=== PATIENT | female | born 1960 | race Caucasian/White ===

== ENCOUNTER 2017-08-11 01:11 | Inpatient (IN) | payer OTHER ==
[~2017-08-11] VITALS: Ht 165.1 cm; Wt 102.7 kg
[2017-08-11] VITALS (7 sets, daily range): BP systolic 130–171; BP diastolic 76–93
--- NOTE | ~2017-08-11 | HC ---
[facility] [place] [address] CONSULTATION Name: MARIO ALBERTO JAY Room #: 218-P [facility] IN M.R.#: [id number] Admission: 08/11/17 Attend Phys: Fred Kitchen MD Discharge: 08/12/17 Date of : 60 Report #: [id number] THIS REPORT FOR: //name// CC: Fred Gallardo DATE OF SERVICE: 08/11/2017 PULMONARY CONSULTATION PRIMARY CARE PHYSICIAN: Dr. Gallardo. REFERRAL PHYSICIAN: Dr. Hyde. REASON FOR REFERRAL: Dyspnea. HISTORY OF PRESENT ILLNESS: The patient is a 57-year-old white female who presents to the Emergency Room with increasing dyspnea. A Pulmonary consultation was requested. The patient has known asthma. She is followed longitudinally by Dr. Galarza at . She has been doing fairly until for the past few months. She has had trouble with exacerbation of asthma. She states that she was hospitalized at [facility] in May for pneumonia and exacerbation of asthma. She has been doing fairly well until about for the last 2-3 weeks. Now, she has noticed increasing dyspnea, cough along with chills. Otherwise, denies any chest pain, hemoptysis, nausea, vomiting, diarrhea. The patient has smoked in the past, but quit 4 years ago. She has smoked for many years. 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 PAST MEDICAL HISTORY: Notable for COPD/asthma overlap, hypothyroidism. ALLERGIES: PENICILLIN, WHICH CAUSES HIVES. HOME MEDICATIONS: Synthroid. She is not on any inhalers on a regular basis due to allergy to one of the inhaler medications. FAMILY HISTORY: Noncontributory. SOCIAL HISTORY: She has smoked, but quit more than 4 years ago. She denies any alcohol use. [facility] [address] [place] [address] CONSULTATION Name: MARIO ALBERTO JAY Room #: 218-P [facility] IN ..#: [id number] Admission: 08/11/17 Attend Phys: Fred Kitchen MD Discharge: 08/12/17 Date of : 60 Report #: [id number] REVIEW OF SYSTEMS: As mentioned above, otherwise 10-point system review negative. PHYSICAL EXAMINATION: GENERAL: She is awake, alert, in no apparent distress. VITAL SIGNS: Temperature is 98 degrees Fahrenheit, pulse is 90, respiratory rate is 18, blood pressure 138/80 mmHg, saturation 95%. HEENT: Normocephalic, atraumatic. NECK: Supple, without lymphadenopathy or thyromegaly. CHEST: Breath sounds are fair with mild expiratory wheezes. No rales. CARDIOVASCULAR: Normal S1, S2. There are no murmurs or gallop. There is no JVD. There is no carotid bruit. Pulses are 2+/4+ bilaterally. ABDOMEN: Soft, nontender, no organomegaly or masses felt. GENITOURINARY: Deferred. RECTAL: Deferred. EXTREMITIES: There is no edema, cyanosis or clubbing. LABORATORY DATA: Portable chest x-ray is notable for mild chronic interstitial infiltrates in the bases. Otherwise, no consolidation noted. Influenza A and B antigen is negative. EKG shows poor R-wave progression, otherwise no other acute ischemic changes. CT chest angiogram for pulmonary embolus showed no evidence of pulmonary emboli, mild patchy ground glass opacities, mild bilateral atelectasis, increased septal markings, mild bilateral hilar and superior mediastinal adenopathy. Electrolytes are normal. WBC is 7900, hemoglobin 13.7, platelets are normal, no evidence of bandemia. Arterial blood gas revealed pH 7.42, pCO2 of 30, pO2 of 54 on 15 liters of O2. IMPRESSION: 1. Profound hypoxia in this 57-year-old white female with history of chronic obstructive pulmonary disease/asthma. She has smoked most of her life until about 4 years ago. She was recently treated for pneumonia in May 2017. She now presents with worsening dyspnea. CT chest angiogram shows patchy ground-glass opacity, bibasilar atelectasis, increased prominence of septum. Mild mediastinal adenopathy is noted. Etiology due to exacerbation of underlying chronic obstructive pulmonary disease/asthma syndrome. Radiographic abnormality suggests atelectasis, possible interstitial process. Interstitial lung disease is felt to be less likely. With presence of mild mediastinal adenopathy, granulomatous disease is also considered. 2. Abnormal CT chest as mentioned above showing mild interstitial lung disease, ground-glass opacity, adenopathy. Etiology likely reactive, but will need followup chest CT. 3. Eosinophilia, will be consistent with underlying asthma. DISCUSSION: It is possible the patient's hypoxia is related to ongoing [address] [address] CONSULTATION Name: MARIO ALBERTO JAY Room #: 218-P [facility] IN M.R.#: [id number] Admission: 08/11/17 Attend Phys: Fred Kitchen MD Discharge: 08/12/17 Date of : 60 Report #: [id number] exacerbation of asthma along with mucus plugging. Cannot rule out other inflammatory granulomatous process. Pneumonia is possible, though less likely. Would recommend broad-spectrum antibiotics, corticosteroids and bronchodilators. Would try mucolytics given probable mucus plugging. Deep venous thrombosis and gastrointestinal prophylaxis recommended. Bronchoscopy may be helpful, though not at present given profound hypoxia. Thank you for this consultation. <ELECTRONICALLY SIGNED> By: David Joiner MD 08/12/17 1746 [id number] [id number] David Joiner MD /nt
--- NOTE | ~2017-08-11 | HC ---
[facility] [place] [address] CONSULTATION Name: MARIO ALBERTO JAY Room #: 218-P ADM IN M.R.#: [id number] Admission: 08/11/17 Attend Phys: Fred Kitchen MD Discharge: Date of : 60 Report #: [id number] THIS REPORT FOR: //name// CC: Fred Gallardo DATE OF SERVICE: 08/11/2017 ATTENDING PHYSICIAN: Dr. Hyde. REASON FOR CONSULTATION: Acute exacerbation of chronic obstructive pulmonary disease. HISTORY OF PRESENT ILLNESS: A 57-year-old white woman who is admitted with increasing shortness of breath of several weeks' duration. She also relates having had night sweats. She initially ascribed to the humidifier she is using, but did not use this one night and the sweats persisted. The patient tells me she has not smoked in 4 years or thereabouts. She was previously evaluated by senior publications specialist at [facility] and diagnosed to have chronic obstructive pulmonary disease, have not used steroids for quite a while and has problems with her current inhaler medications for ABCD reasons. The patient is alert, in no distress, requiring considerable amount of supplemental oxygen. Previous hospitalization in 05/2017 at [facility]. DRUG ALLERGIES: PENICILLIN, RASH. MEDICATIONS: The patient is currently on treatment with vancomycin 1250 mg IV every 12 hours, Levaquin 750 mg IV daily, received a gram of aztreonam in the Emergency Room and methylprednisone single 125 mg dose. Currently on normal saline 1000 mL over every 13 hours. She is on p.r.n. ondansetron and acetaminophen and received Atrovent and albuterol inhalation treatments every 4 hours. 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 Denies tobacco use. Social alcohol use. PAST MEDICAL HISTORY: Chronic obstructive pulmonary disease. Bilateral breast augmentation. Right shoulder surgery. She has been treated for hypertension for a while and this was discontinued, had some cardiac arrhythmias. REVIEW OF SYSTEMS: Not contributory besides breathlessness and skin rash. PHYSICAL EXAMINATION: GENERAL: Well-developed, overweight woman. VITAL SIGNS: Temperature 97.8, pulse 93, respirations 18, BP 139/90, O2 saturation 96% on 10 liters oxygen nasal cannula. [facility] [address] [place] [address] CONSULTATION Name: MARIO ALBERTO JAY Room #: 218-P [facility] IN M.R.#: [id number] Admission: 08/11/17 Attend Phys: Fred Kitchen MD Discharge: Date of : 60 Report #: [id number] HEENMT: Head normocephalic, atraumatic. Pupils reactive. Mouth: Good oral hygiene, a few missing teeth. No thrush. No hairy leukoplakia. NECK: Supple, no thyromegaly. BREASTS: Deferred. LUNGS: Clear to auscultation. HEART: S1, S2. No gallop or murmur. ABDOMEN: Soft, no masses or megaly. PELVIC AND RECTAL: Deferred. EXTREMITIES: No clubbing, cyanosis. NEUROLOGIC: Grossly within normal limits. LABORATORY DATA: Sodium 142, potassium 3.6, CO2 of 25, glucose 132, BUN 14, creatinine 1, albumin 3.7. NT-proBNP normal. WBC 7900, hemoglobin 13.7 g/dL, platelets 434,000. White blood cell count differential revealed 59% segmented neutrophils, 21% lymphocytes. ABGs revealed pH 7.42, pCO2 low at 30.6, pO2 low at 54.6, bicarbonate 19.3, lactate normal. These set of gases on oxygen 15 liters nasal cannula. ASSESSMENT: 1. Possible acute exacerbation of chronic obstructive pulmonary disease. 2. Severe hypoxemia with compensated respiratory alkalosis and metabolic acidosis. 3. History of bilateral breast implants. 4. Folliculitis chest wall. SUGGESTIONS: Recommend ESR, CRP, MRSA screen. CT scan chest, PE protocol. Discontinue vancomycin since chest x-ray not compatible with methicillin-resistant Staphylococcus aureus pneumonia. Continue Levaquin. Solu-Medrol 40 mg IV every [address] Hyde, thank you for requesting my suggestions. <ELECTRONICALLY SIGNED> By: Ezekiel England MD 08/12/17 0926 [id number] Ezekiel England MD /nt
--- NOTE | ~2017-08-11 | EKG ---
[address] [place] [address] ELECTROCARDIOGRAM REPORT Name: JAYMARIO ALBERTO Room #: 218-P ADM IN M.R.#: [id number] Admission: 08/11/17 Attend Phys: Fred Kitchen MD Discharge: Date of : 60 Report #: [id number] THIS REPORT FOR: //name// [facility] ED Test Date: 2017-08-11 Test Time: 01:53:53 Pat Name: MARIO ALBERTO JAY Department: Room: 218 Gender: F Insurance Professional: EMMETT : 1960 Requested By: Cyril Roman Order Number: [id number] MD: Jose Eduardo Smith Measurements Intervals [facility] Rate: 95 P: 39 AR: 142 QRS: 28 QRSD: 84 T: 52 QT: 362 QTc: 455 Interpretive Statements Sinus rhythm Abnormal R-wave progression, early transition No previous ECG available for comparison Electronically Signed On 08-11-2017 8:48:59 PAD CUTTER by Jose Eduardo Smith [email or web address] <ELECTRONICALLY SIGNED> By: Jose Eduardo Smith MD, [facility] 08/11/17 0848 0153 0153 Jose Eduardo Smith MD, FACC /EPI
[2017-08-11] MEDS ORDERED: SYNTHROID75 MCG PO (01:24)
[2017-08-11 02:01] LABS: BE(vivo) -3.8 mmol/L (-2 to +3); HCO3 19.3 mmol/L (22.0-26.0); PCO2 30.3 mmHg (35.0-45.0); PO2 54.6 mmHg (80.0-100.0); pH 7.423 (7.360-7.450); sO2 89.5 % (92.0-98.0)
[2017-08-11 02:17] LABS: ABSOLUTE NEUTROPHILS 4.7 thou/uL (1.4-8.2); BASOPHILS 0.6 % (0.0-2.0); EOSINOPHILS 11.9 % (0.0-3.0); HEMATOCRIT 40.9 % (37.0-47.0); HEMOGLOBIN 13.7 gm/dL (12.0-15.0); LYMPHOCYTES 21.5 % (24.0-44.0); MCH 28.8 pg (26.0-34.0); MCHC 33.4 g/dL (28.0-37.0); MCV 86.3 fL (80.0-100.0); PLATELET COUNT 434 thou/uL (150-400); RBC 4.74 mil/uL (4.20-5.00); RDW 13.2 % (10.5-14.5); WBC 7.9 thou/uL (4.0-11.0)
[2017-08-11 02:30] LABS: ANION GAP 11 mmol/L (7-16); BUN 14 mg/dL (7-18); CALCIUM 9.1 mg/dL (8.5-10.1); CHLORIDE 106 mmol/L (98-107); CO2 25 mmol/L (21-32); GLUCOSE 132 mg/dL (74-106); POTASSIUM 3.6 mmol/L (3.5-5.1); SODIUM 142 mmol/L (136-145)
[2017-08-11 02:39] LABS: ALBUMIN 3.7 g/dL (3.4-5.0); SGOT 15 U/L (15-37); SGPT 23 U/L (30-65); TOTAL BILIRUBIN 0.7 mg/dL (<0.1-1.0); TROPONIN-I < 0.04 ng/mL (<0.06)
[2017-08-12 03:03] VITALS: BP 163/95
[2017-08-12 03:15] LABS: HEMATOCRIT 41.5 % (37.0-47.0); HEMOGLOBIN 13.7 gm/dL (12.0-15.0); MCH 28.7 pg (26.0-34.0); MCHC 33.1 g/dL (28.0-37.0); MCV 86.6 fL (80.0-100.0); RBC 4.79 mil/uL (4.20-5.00); RDW 13.1 % (10.5-14.5); WBC 12.5 thou/uL (4.0-11.0)
[2017-08-12 03:29] LABS: CREATININE 0.8 mg/dL (0.6-1.0)
[2017-08-12 03:35] LABS: CALCIUM 9.4 mg/dL (8.5-10.1)
[2017-08-12 09:00] VITALS: BP 145/85
[2017-08-12 11:30] VITALS: BP 147/92
[2017-08-12] MEDS ORDERED: MUCINEX600 MG PO (12:18)
[2017-08-12] MEDS ORDERED: LEVAQUIN 500 M500 M3 PO (12:18)
[2017-08-12] MEDS ORDERED: PREDNISONE 10 M10 MG PO (12:18)
[2017-08-12 12:45] VITALS: BP 145/85
== END 2017-08-12 13:22 | disposition home or self-care (01) | DRG 871 ==
LOC: ER 01:11 → 2N 02:43 → EROBS 02:43 → 2N 03:06 → ENTRNSPT 08-12 13:13 → EDTRNSPTSTS 08-12 13:16 → 2N 08-12 13:22
PROVIDERS: Emergency Medicine; Internal Medicine Pulmonary Disease; Nurse Practitioner Family
DX: A41.9 Sepsis, unspecified organism (principal); J18.9 Pneumonia, unspecified organism; J96.01 Acute respiratory failure with hypoxia; J44.1 Chronic obstructive pulmonary disease with (acute) exacerbation; J44.0 Chronic obstructive pulmonary disease with (acute) lower respiratory infection; E87.3 Alkalosis; E03.9 Hypothyroidism, unspecified; D72.1 Eosinophilia; L73.9 Follicular disorder, unspecified; Z87.891 Personal history of nicotine dependence; Z88.0 Allergy status to penicillin; Z98.82 Breast implant status
CPT/HCPCS: 10081